=== PATIENT | male | born 1955 | race Caucasian/White ===

== ENCOUNTER 2021-02-06 17:52 | Inpatient (IN) | payer SELFPAY ==
[2021-02-06] MEDS ORDERED: Cefepime 2 GM VIAL ONE (18:17)
[2021-02-06 18:29] LABS: Hemoglobin 14.2 g/dL (14.0-18.0); Mean Corpuscular HGB CONC 30.5 g/dL (32.0-36.0); Mean Corpuscular Hemoglobin 26.9 pg (27.0-31.0); Mean Corpuscular Volume 88.1 fL (78.0-98.0); Mean Platelet Volume 7.7 fL (7.4-10.4); Platelet Count 402 thou/uL (130-400); RBC Distribution Width 16.4 % (11.5-14.5); Red Blood Cell (RBC) Count 5.27 mill/uL (4.70-6.10); White Blood Cell (WBC) Count 26.6 thou/uL (4.8-10.8)
[2021-02-06 18:40] LABS: Anisocytosis SLIGHT = 6-15 cells (100X) (0-5/hpf); Band 10 % (5-11); Hypochromia SLIGHT = 6-15 cells (100X) (0-5/hpf); Lymphocytes 2 % (21-51); MDiff Complete? YES; Neutrophil 88 % (42-75); Platelet Morphology Comment Appears Increased; Polychromasia SLIGHT = 2-3 cells (100X) (0-2/hpf)
[2021-02-06 18:55] LABS: ALT (SGPT) 19 U/L (8-55); AST (SGOT) 26 U/L (5-34); Albumin 3.2 g/dL (3.4-4.8); Alkaline Phosphatase 270 U/L (40-110); Anion Gap 22 mmol/L (10-20); BUN (Urea Nitrogen) 35 mg/dL (8.4-25.7); Bilirubin, Total 2.5 mg/dL (0.2-1.2); Calc. Creatinine Clearance 0 mL/min (70-130); Carbon Dioxide 21 mmol/L (23-31); Chloride 92 mmol/L (98-107); Globulin 4.2 g/dL (2.4-3.5); Glucose 274 mg/dL (80-115); Potassium 4.7 mmol/L (3.5-5.1); Protein, Total 7.4 g/dL (5.8-8.1); Sodium 130 mmol/L (136-145)
[2021-02-06] MEDS ORDERED: Diltiazem 125 MG/25 ML ONE (19:00)
[2021-02-06] MEDS ORDERED: Vancomycin 1 GM/200 ML BAG ONE (19:00)
[2021-02-06 19:02] LABS: CK (CPK) 66 U/L (30-200); Lipase 42 U/L (8-78)
[2021-02-06] MEDS ORDERED: Magnesium 2 GM/50 ML BAG (IN WATER) ONE (19:14)
[2021-02-06] MEDS ORDERED: metroNIDAZOLE 500 MG/100 ML BAG ONE (21:28)
[2021-02-06 22:14] LABS: Lactic Acid 2.4 mmol/L (0.5-2.2)
[2021-02-06] MEDS: Lactated Ringer's 1,000 ML IV SCH (23:47)
[2021-02-07 00:04] LABS: Bacteria/HPF 4+ HPF (None Seen); Bilirubin 1+ (Negative); Blood, Urine Trace (Negative); Clarity Extra Turbid (Clear); Glucose, Urine (Dipstick) Normal (Negative); Ketone, Urine Negative (Negative); Leukocyte 500 Leu/uL (Negative); Nitrite Negative (Negative); Protein, Urine (Dipstick) 200 mg/dL (Neg-Trace); Specific Gravity, Urine 1.022 (1.002-1.036); Squamous Epithelial 0-3 HPF (0-3); WBC/HPF Greater than 50 HPF (0-3); pH, Urine 5.5 (5.0-9.0)
[2021-02-07 01:28] LABS: SARS-CoV-2 NAA Rapid Test Not Detected (NotDetected)
[2021-02-07] MEDS ORDERED: Vancomycin 1 GM in Premix Bag 1 BAG IVPB SCH (03:00)
[2021-02-07] MEDS ORDERED: Dextrose 50% Abboject 50 ML SYRINGE SLOW IVP PRN (04:09)
[2021-02-07] MEDS ORDERED: Dextrose 5% in Water 1,000 ML IV PRN (04:09)
[2021-02-07] MEDS ORDERED: Ondansetron PF 4 MG/2 ML Vial IVP PRN (04:15)
[2021-02-07] MEDS: HYDROcodone/Acetaminophen 7.5/325 mg Tablet PO PRN (04:40)
[2021-02-07] MEDS: Sodium Chloride 0.9% 1,000 ML IV SCH ×2 (05:33→13:46)
[2021-02-07] MEDS: Cefepime 2 GM in Sodium Chloride 0.9% 100 ML IVPB SCH ×2 (05:34→17:54)
[2021-02-07] MEDS: Lactated Ringer's 1,000 ML IV SCH (05:34)
[2021-02-07 05:35] LABS: Band 5 % (5-11); Hemoglobin 13.6 g/dL (14.0-18.0); Lymphocytes 5 % (21-51); MDiff Complete? YES; Mean Corpuscular HGB CONC 30.9 g/dL (32.0-36.0); Mean Corpuscular Hemoglobin 27.1 pg (27.0-31.0); Mean Corpuscular Volume 87.7 fL (78.0-98.0); Mean Platelet Volume 7.4 fL (7.4-10.4); Monocytes 8 % (0-10); Neutrophil 82 % (42-75); Platelet Count 390 thou/uL (130-400); Platelet Morphology Comment Appears Adequate; RBC Distribution Width 16.6 % (11.5-14.5); RBC Morphology Normal; Red Blood Cell (RBC) Count 5.03 mill/uL (4.70-6.10); White Blood Cell (WBC) Count 24.8 thou/uL (4.8-10.8)
[2021-02-07 05:42] LABS: Hemoglobin A1c 8.5 % (4.0-6.0)
[2021-02-07] MEDS: HumaLOG 300 UNITS/3 ML VIAL SC PRN (05:56)
[2021-02-07] MEDS ORDERED: Meropenem 2 GM, Admixture Fee 1 EACH in Sodium Chloride 0.9% 100 ML IVPB SCH (06:00)
[2021-02-07 06:27] LABS: Anion Gap 18 mmol/L (10-20); BUN (Urea Nitrogen) 35 mg/dL (8.4-25.7); Calc. Creatinine Clearance 120 mL/min (70-130); Calcium 8.5 mg/dL (7.8-10.44); Carbon Dioxide 21 mmol/L (23-31); Chloride 96 mmol/L (98-107); Glucose 194 mg/dL (80-115); Sodium 131 mmol/L (136-145)
[2021-02-07] MEDS: metroNIDAZOLE 500 MG in Premix Bag 1 BAG IVPB SCH ×3 (06:42→21:18)
[2021-02-07 06:53] LABS: Cardiac Risk 3.7 (Less than 4.5)
[2021-02-07 06:59] LABS: T4 5.8 ug/dL (4.87-11.72); Thyroid Stimulating Hormone 1.1975 uIU/mL (0.35-4.94)
[2021-02-07 07:59] LABS: INR-International Normal Ratio 1.5; PTT 34.5 sec (22.9-36.1); Prothrombin Time 18.5 sec (12.0-14.7)
[2021-02-07 08:29] LABS: HBCM Index 0.07 S/CO (0-0.79); HBSAg Index 0.19 S/CO (0-0.99); Hep A IgM AB Non-Reactive (NonReactive); Hep A IgM S/CO 0.08 S/CO (0-0.79); Hep B Surf Ag Non-Reactive S/CO (NonReactive); Hep C IgG Ab Non-Reactive (NonReactive); Hep C Index 0.25 S/CO (0-0.79); Hepatitis B Core IgM Abs Non-Reactive (NonReactive)
[2021-02-07] MEDS ORDERED: Metoprolol Tartrate 25 MG TAB PO SCH (09:00)
[2021-02-07] MEDS ORDERED: metFORMIN 500 MG TAB PO SCH (09:00)
[2021-02-07] MEDS: glipiZIDE 5 MG TAB PO SCH ×2 (09:09→21:18)
[2021-02-07] MEDS: Aspirin Chewable 81 MG TAB PO SCH (09:10)
[2021-02-07] MEDS: Heparin 5,000 UNITS/ML VIAL SC SCH ×3 (09:10→21:18)
[2021-02-07] MEDS: Gabapentin 300 MG CAP PO SCH ×2 (09:10→21:18)
[2021-02-07] MEDS: Diltiazem 125 MG in Sodium Chloride 0.9% 100 ML IVPB SCH ×2 (09:49→19:01)
[2021-02-07] MEDS ORDERED: Digoxin 0.5 MG/2 ML AMP SLOW IVP SCH ×3 (14:00→15:30)
[2021-02-07] MEDS: Vancomycin 1.5 GRAM/300 ML BAG 1.5 GM in Premix Bag 1 BAG IVPB SCH (15:59)
[2021-02-07] MEDS ORDERED: Furosemide 20 MG/2 ML VIAL SLOW IVP SCH (16:00)
[2021-02-07] MEDS: Digoxin 0.5 MG/2 ML AMP SLOW IVP SCH (21:14)
[2021-02-07] MEDS: Simvastatin 10 MG TAB PO SCH (21:18)
[2021-02-08] MEDS: Digoxin 0.5 MG/2 ML AMP SLOW IVP SCH (03:13)
[2021-02-08] MEDS: Diltiazem 125 MG in Sodium Chloride 0.9% 100 ML IVPB SCH ×2 (03:15→21:24)
[2021-02-08] MEDS: Vancomycin 1.5 GRAM/300 ML BAG 1.5 GM in Premix Bag 1 BAG IVPB SCH ×2 (03:15→15:31)
[2021-02-08 04:48] LABS: Hemoglobin 13.8 g/dL (14.0-18.0); Mean Corpuscular HGB CONC 29.4 g/dL (32.0-36.0); Mean Corpuscular Hemoglobin 26.2 pg (27.0-31.0); Mean Corpuscular Volume 89.2 fL (78.0-98.0); Mean Platelet Volume 7.3 fL (7.4-10.4); Platelet Count 420 thou/uL (130-400); RBC Distribution Width 16.5 % (11.5-14.5); Red Blood Cell (RBC) Count 5.26 mill/uL (4.70-6.10); White Blood Cell (WBC) Count 22.5 thou/uL (4.8-10.8)
[2021-02-08] MEDS: HYDROcodone/Acetaminophen 7.5/325 mg Tablet PO PRN ×2 (04:54→21:13)
[2021-02-08] MEDS: metroNIDAZOLE 500 MG in Premix Bag 1 BAG IVPB SCH ×3 (04:57→21:24)
[2021-02-08 05:03] LABS: ALT (SGPT) 21 U/L (8-55); AST (SGOT) 29 U/L (5-34); Albumin 2.8 g/dL (3.4-4.8); Alkaline Phosphatase 217 U/L (40-110); Anion Gap 15 mmol/L (10-20); BUN (Urea Nitrogen) 36 mg/dL (8.4-25.7); Bilirubin, Total 1.6 mg/dL (0.2-1.2); Calc. Creatinine Clearance 136 mL/min (70-130); Calcium 8.2 mg/dL (7.8-10.44); Carbon Dioxide 24 mmol/L (23-31); Chloride 99 mmol/L (98-107); Globulin 3.7 g/dL (2.4-3.5); Glucose 147 mg/dL (80-115); Potassium 3.9 mmol/L (3.5-5.1); Protein, Total 6.5 g/dL (5.8-8.1); Sodium 134 mmol/L (136-145)
[2021-02-08 05:16] LABS: Lymphocytes 3 % (21-51); MDiff Complete? YES; Metamyelocyte 1 % (0-0); Monocytes 5 % (0-10); Neutrophil 91 % (42-75); Platelet Morphology Comment Appears Increased
[2021-02-08] MEDS: Cefepime 2 GM in Sodium Chloride 0.9% 100 ML IVPB SCH (06:09)
[2021-02-08] MEDS: Digoxin 0.25 MG TAB PO SCH (09:30)
[2021-02-08] MEDS: Aspirin Chewable 81 MG TAB PO SCH (09:30)
[2021-02-08] MEDS: glipiZIDE 5 MG TAB PO SCH ×2 (09:30→21:16)
[2021-02-08] MEDS: Heparin 5,000 UNITS/ML VIAL SC SCH ×3 (09:31→21:16)
[2021-02-08] MEDS: Gabapentin 300 MG CAP PO SCH ×2 (09:31→21:15)
[2021-02-08] MEDS: Lisinopril 5 MG TAB PO SCH (09:37)
[2021-02-08] MEDS: Furosemide 40 MG/4 ML VIAL SLOW IVP SCH (09:37)
[2021-02-08] MEDS: Cefepime 1 GM in Sodium Chloride 0.9% 100 ML IVPB SCH (18:09)
[2021-02-08] MEDS: Simvastatin 10 MG TAB PO SCH (21:16)
[2021-02-09 04:18] LABS: #Eosinphils 0.1 thou/uL (0.0-0.7); #Monocytes 1.5 thou/uL (0.11-0.59); #Neutrophils 18.3 thou/uL (1.40-6.50); %Basophils 0.1 % (0.0-1.0); %Eosinophils 0.5 % (0.0-10.0); %Lymphocytes 4.8 % (21.0-51.0); %Monocytes 6.9 % (0.0-10.0); %Neutrophils 87.7 % (42.0-75.0); Mean Corpuscular HGB CONC 30.4 g/dL (32.0-36.0); Mean Corpuscular Hemoglobin 27.4 pg (27.0-31.0); Mean Corpuscular Volume 90.1 fL (78.0-98.0); Platelet Count 441 thou/uL (130-400); RBC Distribution Width 16.4 % (11.5-14.5); Red Blood Cell (RBC) Count 5.11 mill/uL (4.70-6.10); White Blood Cell (WBC) Count 20.9 thou/uL (4.8-10.8)
[2021-02-09] MEDS: metroNIDAZOLE 500 MG in Premix Bag 1 BAG IVPB SCH ×3 (04:39→21:01)
[2021-02-09 04:40] LABS: ALT (SGPT) 19 U/L (8-55); AST (SGOT) 21 U/L (5-34); Albumin 2.9 g/dL (3.4-4.8); Alkaline Phosphatase 227 U/L (40-110); Anion Gap 13 mmol/L (10-20); BUN (Urea Nitrogen) 31 mg/dL (8.4-25.7); Bilirubin, Total 1.5 mg/dL (0.2-1.2); Calc. Creatinine Clearance 148 mL/min (70-130); Calcium 8.7 mg/dL (7.8-10.44); Carbon Dioxide 28 mmol/L (23-31); Chloride 98 mmol/L (98-107); Globulin 3.9 g/dL (2.4-3.5); Glucose 116 mg/dL (80-115); Protein, Total 6.8 g/dL (5.8-8.1); Sodium 135 mmol/L (136-145)
[2021-02-09] MEDS: Cefepime 1 GM in Sodium Chloride 0.9% 100 ML IVPB SCH ×2 (05:14→19:24)
[2021-02-09] MEDS: Vancomycin 1.5 GRAM/300 ML BAG 1.5 GM in Premix Bag 1 BAG IVPB SCH ×2 (06:03→17:37)
[2021-02-09] MEDS: Diltiazem 125 MG in Sodium Chloride 0.9% 100 ML IVPB SCH (06:48)
[2021-02-09] MEDS: Furosemide 40 MG/4 ML VIAL SLOW IVP SCH (08:19)
[2021-02-09] MEDS: Gabapentin 300 MG CAP PO SCH ×2 (08:20→20:41)
[2021-02-09] MEDS: glipiZIDE 5 MG TAB PO SCH ×2 (08:20→20:39)
[2021-02-09] MEDS: Aspirin Chewable 81 MG TAB PO SCH (08:20)
[2021-02-09] MEDS: Heparin 5,000 UNITS/ML VIAL SC SCH (08:20)
[2021-02-09] MEDS: Digoxin 0.25 MG TAB PO SCH (08:20)
[2021-02-09] MEDS: Lisinopril 5 MG TAB PO SCH (08:20)
[2021-02-09] MEDS: HYDROcodone/Acetaminophen 7.5/325 mg Tablet PO PRN ×2 (08:39→17:44)
[2021-02-09] MEDS ORDERED: Midazolam HCl 2 mg/2 ml Vial ONE (11:39)
[2021-02-09] MEDS ORDERED: Ketamine 50 MG/ML (10ML VIAL) ONE (11:40)
[2021-02-09] MEDS: Amiodarone 200 MG TAB PO SCH ×2 (15:38→20:42)
[2021-02-09] MEDS: Rivaroxaban 10 MG TAB PO SCH (17:45)
[2021-02-09] MEDS: HumaLOG 300 UNITS/3 ML VIAL SC PRN (18:36)
[2021-02-09] MEDS: Simvastatin 10 MG TAB PO SCH (20:41)
[2021-02-10] MEDS: Vancomycin 1.5 GRAM/300 ML BAG 1.5 GM in Premix Bag 1 BAG IVPB SCH ×2 (05:17→14:40)
[2021-02-10] MEDS: Cefepime 1 GM in Sodium Chloride 0.9% 100 ML IVPB SCH ×2 (05:18→17:10)
[2021-02-10] MEDS: metroNIDAZOLE 500 MG in Premix Bag 1 BAG IVPB SCH ×3 (05:19→22:10)
[2021-02-10 05:21] LABS: ALT (SGPT) 20 U/L (8-55); AST (SGOT) 25 U/L (5-34); Alkaline Phosphatase 236 U/L (40-110); Anion Gap 16 mmol/L (10-20); BUN (Urea Nitrogen) 31 mg/dL (8.4-25.7); Bilirubin, Total 1.7 mg/dL (0.2-1.2); Calc. Creatinine Clearance 145 mL/min (70-130); Calcium 8.4 mg/dL (7.8-10.44); Carbon Dioxide 26 mmol/L (23-31); Chloride 96 mmol/L (98-107); Globulin 4.1 g/dL (2.4-3.5); Glucose 145 mg/dL (80-115); Potassium 4.3 mmol/L (3.5-5.1); Protein, Total 7.1 g/dL (5.8-8.1); Sodium 134 mmol/L (136-145)
[2021-02-10 06:44] LABS: #Eosinphils 0.1 thou/uL (0.0-0.7); #Lymphocytes 0.8 thou/uL (1.20-3.40); #Monocytes 1.4 thou/uL (0.11-0.59); #Neutrophils 19.8 thou/uL (1.40-6.50); %Basophils 0.2 % (0.0-1.0); %Eosinophils 0.4 % (0.0-10.0); %Lymphocytes 3.7 % (21.0-51.0); %Monocytes 6.4 % (0.0-10.0); %Neutrophils 89.3 % (42.0-75.0); Anisocytosis SLIGHT = 6-15 cells (100X) (0-5/hpf); Hemoglobin 14.5 g/dL (14.0-18.0); MDiff Complete? YES; Mean Corpuscular HGB CONC 29.6 g/dL (32.0-36.0); Mean Corpuscular Volume 91.4 fL (78.0-98.0); Mean Platelet Volume 7.1 fL (7.4-10.4); Platelet Count 425 thou/uL (130-400); RBC Distribution Width 16.8 % (11.5-14.5); Red Blood Cell (RBC) Count 5.35 mill/uL (4.70-6.10); White Blood Cell (WBC) Count 22.2 thou/uL (4.8-10.8)
[2021-02-10] MEDS: Amiodarone 200 MG TAB PO SCH ×2 (08:06→22:04)
[2021-02-10] MEDS: glipiZIDE 5 MG TAB PO SCH ×2 (08:06→22:04)
[2021-02-10] MEDS: Lisinopril 5 MG TAB PO SCH (08:06)
[2021-02-10] MEDS: Aspirin Chewable 81 MG TAB PO SCH (08:06)
[2021-02-10] MEDS: Gabapentin 300 MG CAP PO SCH ×2 (08:07→22:04)
[2021-02-10] MEDS: Furosemide 40 MG/4 ML VIAL SLOW IVP SCH (08:10)
[2021-02-10] MEDS: HumaLOG 300 UNITS/3 ML VIAL SC PRN (11:03)
[2021-02-10] MEDS: HYDROcodone/Acetaminophen 7.5/325 mg Tablet PO PRN (14:39)
[2021-02-10] MEDS: Rivaroxaban 10 MG TAB PO SCH (17:14)
[2021-02-10] MEDS: Simvastatin 10 MG TAB PO SCH (22:04)
[2021-02-11] MEDS ORDERED: Metoprolol Tartrate 50 MG TAB PO SCH (02:30)
[2021-02-11] MEDS: HYDROcodone/Acetaminophen 7.5/325 mg Tablet PO PRN ×2 (03:56→15:44)
[2021-02-11] MEDS: Vancomycin 1.5 GRAM/300 ML BAG 1.5 GM in Premix Bag 1 BAG IVPB SCH ×2 (03:59→15:31)
[2021-02-11 04:29] LABS: #Eosinphils 0.1 thou/uL (0.0-0.7); #Lymphocytes 0.9 thou/uL (1.20-3.40); #Monocytes 1.3 thou/uL (0.11-0.59); #Neutrophils 14.3 thou/uL (1.40-6.50); %Basophils 0.2 % (0.0-1.0); %Eosinophils 0.7 % (0.0-10.0); %Lymphocytes 5.6 % (21.0-51.0); %Neutrophils 85.6 % (42.0-75.0); Hemoglobin 13.4 g/dL (14.0-18.0); Mean Corpuscular HGB CONC 29.5 g/dL (32.0-36.0); Mean Corpuscular Hemoglobin 26.5 pg (27.0-31.0); Mean Corpuscular Volume 89.7 fL (78.0-98.0); Platelet Count 396 thou/uL (130-400); RBC Distribution Width 16.5 % (11.5-14.5); Red Blood Cell (RBC) Count 5.05 mill/uL (4.70-6.10); White Blood Cell (WBC) Count 16.7 thou/uL (4.8-10.8)
[2021-02-11 04:42] LABS: Anion Gap 13 mmol/L (10-20); BUN (Urea Nitrogen) 31 mg/dL (8.4-25.7); Calc. Creatinine Clearance 160 mL/min (70-130); Calcium 8.2 mg/dL (7.8-10.44); Carbon Dioxide 27 mmol/L (23-31); Chloride 97 mmol/L (98-107); Glucose 116 mg/dL (80-115); Magnesium 1.9 mg/dL (1.6-2.6); Phosphorus 2.4 mg/dL (2.3-4.7); Sodium 133 mmol/L (136-145)
[2021-02-11] MEDS: metroNIDAZOLE 500 MG in Premix Bag 1 BAG IVPB SCH ×3 (05:55→21:00)
[2021-02-11] MEDS: Cefepime 1 GM in Sodium Chloride 0.9% 100 ML IVPB SCH ×2 (05:55→17:09)
[2021-02-11] MEDS: Furosemide 40 MG/4 ML VIAL SLOW IVP SCH (08:00)
[2021-02-11] MEDS: Gabapentin 300 MG CAP PO SCH ×2 (08:01→20:58)
[2021-02-11] MEDS: Lisinopril 5 MG TAB PO SCH (08:01)
[2021-02-11] MEDS: Aspirin Chewable 81 MG TAB PO SCH (08:02)
[2021-02-11] MEDS: Amiodarone 200 MG TAB PO SCH ×2 (08:02→20:59)
[2021-02-11] MEDS: glipiZIDE 5 MG TAB PO SCH ×2 (08:03→20:58)
[2021-02-11] MEDS ORDERED: Polyethylene Glycol 3350 17 GM Packet PO PRN (10:20)
[2021-02-11] MEDS ORDERED: Magnesium 2 GM/50 ML 2 GM in Premix Bag 1 BAG IVPB SCH (10:30)
[2021-02-11] MEDS: HumaLOG 300 UNITS/3 ML VIAL SC PRN (11:25)
[2021-02-11 15:31] LABS: Vancomycin, Trough 23.6 ug/mL
[2021-02-11] MEDS: Rivaroxaban 10 MG TAB PO SCH (17:09)
[2021-02-11] MEDS: Simvastatin 10 MG TAB PO SCH (20:58)
[2021-02-12 03:05] LABS: #Eosinphils 0.2 thou/uL (0.0-0.7); #Monocytes 1.3 thou/uL (0.11-0.59); #Neutrophils 13.9 thou/uL (1.40-6.50); %Basophils 0.2 % (0.0-1.0); %Eosinophils 1.1 % (0.0-10.0); %Monocytes 8.1 % (0.0-10.0); %Neutrophils 84.6 % (42.0-75.0); Hemoglobin 14.1 g/dL (14.0-18.0); Mean Corpuscular HGB CONC 30.7 g/dL (32.0-36.0); Mean Corpuscular Hemoglobin 27.5 pg (27.0-31.0); Mean Corpuscular Volume 89.5 fL (78.0-98.0); Mean Platelet Volume 6.9 fL (7.4-10.4); Platelet Count 388 thou/uL (130-400); RBC Distribution Width 16.5 % (11.5-14.5); Red Blood Cell (RBC) Count 5.12 mill/uL (4.70-6.10); White Blood Cell (WBC) Count 16.5 thou/uL (4.8-10.8)
[2021-02-12 03:36] LABS: Vancomycin, Trough 36.6 ug/mL
[2021-02-12] MEDS: metroNIDAZOLE 500 MG in Premix Bag 1 BAG IVPB SCH (06:15)
[2021-02-12] MEDS: Cefepime 1 GM in Sodium Chloride 0.9% 100 ML IVPB SCH (06:16)
[2021-02-12 06:42] LABS: Anion Gap 13 mmol/L (10-20); Carbon Dioxide 23 mmol/L (23-31); Chloride 103 mmol/L (98-107); Potassium 4.9 mmol/L (3.5-5.1); Sodium 134 mmol/L (136-145)
[2021-02-12 06:43] LABS: BUN (Urea Nitrogen) 31 mg/dL (8.4-25.7); Calc. Creatinine Clearance 165 mL/min (70-130); Calcium 8.4 mg/dL (7.8-10.44); Glucose 138 mg/dL (80-115)
[2021-02-12] MEDS: Furosemide 40 MG/4 ML VIAL SLOW IVP SCH (07:57)
[2021-02-12] MEDS: glipiZIDE 5 MG TAB PO SCH ×2 (07:59→21:54)
[2021-02-12] MEDS: Aspirin Chewable 81 MG TAB PO SCH (07:59)
[2021-02-12] MEDS: Amiodarone 200 MG TAB PO SCH ×3 (07:59→21:55)
[2021-02-12] MEDS: Gabapentin 300 MG CAP PO SCH ×2 (07:59→21:55)
[2021-02-12] MEDS: Lisinopril 5 MG TAB PO SCH (07:59)
[2021-02-12] MEDS ORDERED: Metoprolol Tartrate 5 MG/5 ML VIAL IVP PRN (13:38)
[2021-02-12] MEDS: HYDROcodone/Acetaminophen 7.5/325 mg Tablet PO PRN (15:14)
[2021-02-12 15:24] LABS: Vancomycin, Random 21.8 ug/mL (See Comment)
[2021-02-12] MEDS ORDERED: Vancomycin 1.5 GRAM/300 ML BAG 1.5 GM in Premix Bag 1 BAG IVPB SCH (16:00)
[2021-02-12] MEDS: CEFAZOLIN 2 GM in Premix Bag 1 BAG IVPB SCH ×2 (17:06→23:33)
[2021-02-12] MEDS: Rivaroxaban 10 MG TAB PO SCH (17:07)
[2021-02-12] MEDS: Simvastatin 10 MG TAB PO SCH (21:55)
[2021-02-13] MEDS: HYDROcodone/Acetaminophen 7.5/325 mg Tablet PO PRN ×2 (04:08→19:55)
[2021-02-13 04:45] LABS: #Eosinphils 0.2 thou/uL (0.0-0.7); #Lymphocytes 1.1 thou/uL (1.20-3.40); #Monocytes 1.1 thou/uL (0.11-0.59); #Neutrophils 11.3 thou/uL (1.40-6.50); %Basophils 0.2 % (0.0-1.0); %Eosinophils 1.7 % (0.0-10.0); %Lymphocytes 7.6 % (21.0-51.0); %Neutrophils 82.5 % (42.0-75.0); Hemoglobin 13.7 g/dL (14.0-18.0); Mean Corpuscular HGB CONC 31.2 g/dL (32.0-36.0); Mean Corpuscular Hemoglobin 28.1 pg (27.0-31.0); Mean Corpuscular Volume 89.9 fL (78.0-98.0); Mean Platelet Volume 7.2 fL (7.4-10.4); Platelet Count 388 thou/uL (130-400); RBC Distribution Width 16.6 % (11.5-14.5); Red Blood Cell (RBC) Count 4.88 mill/uL (4.70-6.10); White Blood Cell (WBC) Count 13.7 thou/uL (4.8-10.8)
[2021-02-13 05:14] LABS: Anion Gap 12 mmol/L (10-20); BUN (Urea Nitrogen) 29 mg/dL (8.4-25.7); Calc. Creatinine Clearance 171 mL/min (70-130); Calcium 8.8 mg/dL (7.8-10.44); Carbon Dioxide 29 mmol/L (23-31); Chloride 98 mmol/L (98-107); Glucose 113 mg/dL (80-115); Sodium 135 mmol/L (136-145)
[2021-02-13] MEDS: glipiZIDE 5 MG TAB PO SCH ×2 (08:47→19:56)
[2021-02-13] MEDS: Aspirin Chewable 81 MG TAB PO SCH (08:47)
[2021-02-13] MEDS: Gabapentin 300 MG CAP PO SCH ×2 (08:48→19:56)
[2021-02-13] MEDS: Amiodarone 200 MG TAB PO SCH ×3 (08:48→19:56)
[2021-02-13] MEDS: Lisinopril 5 MG TAB PO SCH (08:48)
[2021-02-13] MEDS: CEFAZOLIN 2 GM in Premix Bag 1 BAG IVPB SCH ×3 (08:50→23:57)
[2021-02-13] MEDS: Furosemide 40 MG/4 ML VIAL SLOW IVP SCH (09:07)
[2021-02-13] MEDS: Rivaroxaban 10 MG TAB PO SCH (18:00)
[2021-02-13] MEDS ORDERED: Metolazone 5 MG TAB PO SCH (18:15)
[2021-02-13] MEDS: Simvastatin 10 MG TAB PO SCH (19:55)
[2021-02-14 04:51] LABS: #Basophils 0.1 thou/uL (0.0-0.2); #Eosinphils 0.2 thou/uL (0.0-0.7); #Monocytes 0.9 thou/uL (0.11-0.59); #Neutrophils 8.5 thou/uL (1.40-6.50); %Basophils 0.6 % (0.0-1.0); %Eosinophils 1.9 % (0.0-10.0); %Lymphocytes 9.5 % (21.0-51.0); %Monocytes 8.7 % (0.0-10.0); %Neutrophils 79.3 % (42.0-75.0); Hemoglobin 13.7 g/dL (14.0-18.0); Mean Corpuscular HGB CONC 30.6 g/dL (32.0-36.0); Mean Corpuscular Hemoglobin 27.4 pg (27.0-31.0); Mean Corpuscular Volume 89.6 fL (78.0-98.0); Platelet Count 338 thou/uL (130-400); RBC Distribution Width 16.9 % (11.5-14.5); White Blood Cell (WBC) Count 10.7 thou/uL (4.8-10.8)
[2021-02-14 05:16] LABS: Anion Gap 13 mmol/L (10-20); BUN (Urea Nitrogen) 28 mg/dL (8.4-25.7); Calc. Creatinine Clearance 142 mL/min (70-130); Carbon Dioxide 30 mmol/L (23-31); Chloride 98 mmol/L (98-107); Glucose 231 mg/dL (80-115); Magnesium 1.9 mg/dL (1.6-2.6); Potassium 3.8 mmol/L (3.5-5.1); Sodium 137 mmol/L (136-145)
[2021-02-14] MEDS ORDERED: Magnesium Sulfate 2 GM in Sodium Chloride 0.9% 100 ML IVPB SCH (07:15)
[2021-02-14] MEDS ORDERED: Magnesium 2 GM/50 ML 2 GM in Premix Bag 1 BAG IVPB SCH (07:30)
[2021-02-14] MEDS: CEFAZOLIN 2 GM in Premix Bag 1 BAG IVPB SCH ×2 (08:49→15:20)
[2021-02-14] MEDS: Furosemide 40 MG/4 ML VIAL SLOW IVP SCH (08:50)
[2021-02-14] MEDS: Lisinopril 5 MG TAB PO SCH (08:50)
[2021-02-14] MEDS: glipiZIDE 5 MG TAB PO SCH ×2 (08:50→20:58)
[2021-02-14] MEDS: Gabapentin 300 MG CAP PO SCH ×2 (08:51→20:57)
[2021-02-14] MEDS: Aspirin Chewable 81 MG TAB PO SCH (08:51)
[2021-02-14] MEDS: Amiodarone 200 MG TAB PO SCH ×3 (08:51→20:58)
[2021-02-14] MEDS ORDERED: Milrinone Lactate/D5W 20 MG in Premix Bag 1 BAG IVPB SCH (13:30)
[2021-02-14] MEDS: Rivaroxaban 10 MG TAB PO SCH (17:45)
[2021-02-14] MEDS: Simvastatin 10 MG TAB PO SCH (20:59)
[2021-02-14] MEDS: Milrinone Lactate/D5W 20 MG in Premix Bag 1 BAG IVPB SCH (22:29)
[2021-02-15] MEDS: CEFAZOLIN 2 GM in Premix Bag 1 BAG IVPB SCH ×4 (00:06→23:40)
[2021-02-15 04:56] LABS: #Eosinphils 0.2 thou/uL (0.0-0.7); #Lymphocytes 0.9 thou/uL (1.20-3.40); #Monocytes 0.9 thou/uL (0.11-0.59); #Neutrophils 9.2 thou/uL (1.40-6.50); %Basophils 0.1 % (0.0-1.0); %Eosinophils 1.9 % (0.0-10.0); %Lymphocytes 8.2 % (21.0-51.0); %Monocytes 8.1 % (0.0-10.0); %Neutrophils 81.7 % (42.0-75.0); Hemoglobin 13.6 g/dL (14.0-18.0); Mean Corpuscular HGB CONC 31.4 g/dL (32.0-36.0); Mean Corpuscular Hemoglobin 28.1 pg (27.0-31.0); Mean Corpuscular Volume 89.5 fL (78.0-98.0); Mean Platelet Volume 6.9 fL (7.4-10.4); Platelet Count 289 thou/uL (130-400); RBC Distribution Width 16.6 % (11.5-14.5); Red Blood Cell (RBC) Count 4.83 mill/uL (4.70-6.10); White Blood Cell (WBC) Count 11.2 thou/uL (4.8-10.8)
[2021-02-15 05:21] LABS: Anion Gap 12 mmol/L (10-20); BUN (Urea Nitrogen) 25 mg/dL (8.4-25.7); Calc. Creatinine Clearance 137 mL/min (70-130); Carbon Dioxide 33 mmol/L (23-31); Chloride 97 mmol/L (98-107); Glucose 192 mg/dL (80-115); Magnesium 1.9 mg/dL (1.6-2.6); Potassium 3.5 mmol/L (3.5-5.1); Sodium 138 mmol/L (136-145)
[2021-02-15] MEDS: Metolazone 5 MG TAB PO SCH (06:25)
[2021-02-15] MEDS: HumaLOG 300 UNITS/3 ML VIAL SC PRN ×2 (06:27→12:49)
[2021-02-15] MEDS: Furosemide 40 MG/4 ML VIAL SLOW IVP SCH (08:28)
[2021-02-15] MEDS: Amiodarone 200 MG TAB PO SCH ×3 (08:29→20:26)
[2021-02-15] MEDS ORDERED: Potassium Chloride 20 MEQ TAB PO SCH ×2 (08:30→17:00)
[2021-02-15] MEDS: Gabapentin 300 MG CAP PO SCH ×2 (08:30→20:26)
[2021-02-15] MEDS: Lisinopril 5 MG TAB PO SCH (08:30)
[2021-02-15] MEDS: glipiZIDE 5 MG TAB PO SCH ×2 (08:30→20:27)
[2021-02-15] MEDS: Aspirin Chewable 81 MG TAB PO SCH (08:30)
[2021-02-15] MEDS: Milrinone Lactate/D5W 20 MG in Premix Bag 1 BAG IVPB SCH ×3 (10:53→22:50)
[2021-02-15] MEDS: Rivaroxaban 10 MG TAB PO SCH (17:21)
[2021-02-15] MEDS: Simvastatin 10 MG TAB PO SCH (20:26)
[2021-02-16 04:45] LABS: #Eosinphils 0.3 thou/uL (0.0-0.7); #Lymphocytes 1.1 thou/uL (1.20-3.40); #Neutrophils 8.9 thou/uL (1.40-6.50); %Basophils 0.2 % (0.0-1.0); %Eosinophils 2.5 % (0.0-10.0); %Lymphocytes 9.6 % (21.0-51.0); %Monocytes 9.2 % (0.0-10.0); %Neutrophils 78.6 % (42.0-75.0); Hemoglobin 13.8 g/dL (14.0-18.0); Mean Corpuscular HGB CONC 31.3 g/dL (32.0-36.0); Mean Corpuscular Hemoglobin 27.9 pg (27.0-31.0); Mean Corpuscular Volume 89.2 fL (78.0-98.0); Platelet Count 299 thou/uL (130-400); RBC Distribution Width 16.6 % (11.5-14.5); Red Blood Cell (RBC) Count 4.94 mill/uL (4.70-6.10); White Blood Cell (WBC) Count 11.3 thou/uL (4.8-10.8)
[2021-02-16 05:07] LABS: Anion Gap 13 mmol/L (10-20); BUN (Urea Nitrogen) 21 mg/dL (8.4-25.7); Calc. Creatinine Clearance 148 mL/min (70-130); Calcium 8.8 mg/dL (7.8-10.44); Carbon Dioxide 31 mmol/L (23-31); Chloride 96 mmol/L (98-107); Glucose 140 mg/dL (80-115); Potassium 4.3 mmol/L (3.5-5.1); Sodium 136 mmol/L (136-145)
[2021-02-16] MEDS: Milrinone Lactate/D5W 20 MG in Premix Bag 1 BAG IVPB SCH ×2 (05:13→12:51)
[2021-02-16] MEDS: Metolazone 5 MG TAB PO SCH (05:13)
[2021-02-16] MEDS: Gabapentin 300 MG CAP PO SCH ×2 (08:53→20:18)
[2021-02-16] MEDS: Furosemide 40 MG/4 ML VIAL SLOW IVP SCH (08:54)
[2021-02-16] MEDS: Aspirin Chewable 81 MG TAB PO SCH (08:54)
[2021-02-16] MEDS: Amiodarone 200 MG TAB PO SCH ×3 (08:54→20:19)
[2021-02-16] MEDS: glipiZIDE 5 MG TAB PO SCH ×2 (08:54→20:19)
[2021-02-16] MEDS: CEFAZOLIN 2 GM in Premix Bag 1 BAG IVPB SCH ×2 (08:54→16:02)
[2021-02-16] MEDS: Lisinopril 5 MG TAB PO SCH (08:55)
[2021-02-16] MEDS: HumaLOG 300 UNITS/3 ML VIAL SC PRN ×2 (11:15→18:09)
[2021-02-16] MEDS: Rivaroxaban 10 MG TAB PO SCH (16:56)
[2021-02-16] MEDS: HYDROcodone/Acetaminophen 7.5/325 mg Tablet PO PRN (18:10)
[2021-02-16] MEDS: Simvastatin 10 MG TAB PO SCH (20:18)
[2021-02-17] MEDS: CEFAZOLIN 2 GM in Premix Bag 1 BAG IVPB SCH ×3 (01:14→15:23)
[2021-02-17 05:17] LABS: #Eosinphils 0.2 thou/uL (0.0-0.7); #Lymphocytes 0.9 thou/uL (1.20-3.40); #Monocytes 0.9 thou/uL (0.11-0.59); #Neutrophils 7.8 thou/uL (1.40-6.50); %Basophils 0.2 % (0.0-1.0); %Eosinophils 2.4 % (0.0-10.0); %Monocytes 9.2 % (0.0-10.0); %Neutrophils 79.2 % (42.0-75.0); Hemoglobin 12.9 g/dL (14.0-18.0); Mean Corpuscular HGB CONC 29.2 g/dL (32.0-36.0); Mean Corpuscular Hemoglobin 25.9 pg (27.0-31.0); Mean Corpuscular Volume 88.6 fL (78.0-98.0); Mean Platelet Volume 7.3 fL (7.4-10.4); Platelet Count 292 thou/uL (130-400); Red Blood Cell (RBC) Count 4.99 mill/uL (4.70-6.10); White Blood Cell (WBC) Count 9.9 thou/uL (4.8-10.8)
[2021-02-17] MEDS: Metolazone 5 MG TAB PO SCH (05:35)
[2021-02-17 05:37] LABS: Anion Gap 12 mmol/L (10-20); BUN (Urea Nitrogen) 18 mg/dL (8.4-25.7); Calc. Creatinine Clearance 156 mL/min (70-130); Calcium 8.7 mg/dL (7.8-10.44); Carbon Dioxide 32 mmol/L (23-31); Chloride 94 mmol/L (98-107); Glucose 158 mg/dL (80-115); Magnesium 1.7 mg/dL (1.6-2.6); Potassium 3.5 mmol/L (3.5-5.1); Sodium 134 mmol/L (136-145)
[2021-02-17] MEDS: glipiZIDE 5 MG TAB PO SCH ×2 (09:14→20:25)
[2021-02-17] MEDS: Gabapentin 300 MG CAP PO SCH ×2 (09:14→20:24)
[2021-02-17] MEDS: Amiodarone 200 MG TAB PO SCH ×3 (09:14→20:24)
[2021-02-17] MEDS: Furosemide 40 MG/4 ML VIAL SLOW IVP SCH (09:14)
[2021-02-17] MEDS: Aspirin Chewable 81 MG TAB PO SCH (09:14)
[2021-02-17] MEDS: Lisinopril 5 MG TAB PO SCH (09:26)
[2021-02-17] MEDS: HumaLOG 300 UNITS/3 ML VIAL SC PRN ×3 (12:25→20:30)
[2021-02-17] MEDS: HYDROcodone/Acetaminophen 7.5/325 mg Tablet PO PRN (14:52)
[2021-02-17] MEDS: Rivaroxaban 10 MG TAB PO SCH (18:00)
[2021-02-17] MEDS: Milrinone Lactate/D5W 20 MG in Premix Bag 1 BAG IVPB SCH (19:30)
[2021-02-17] MEDS: Simvastatin 10 MG TAB PO SCH (20:24)
[2021-02-18] MEDS: Milrinone Lactate/D5W 20 MG in Premix Bag 1 BAG IVPB SCH ×6 (00:01→22:04)
[2021-02-18] MEDS: CEFAZOLIN 2 GM in Premix Bag 1 BAG IVPB SCH ×3 (00:02→17:39)
[2021-02-18] MEDS: Acetaminophen 325 MG TAB PO PRN ×2 (04:17→19:51)
[2021-02-18] MEDS: Metolazone 5 MG TAB PO SCH (05:51)
[2021-02-18] MEDS: Lisinopril 5 MG TAB PO SCH (08:33)
[2021-02-18] MEDS: Amiodarone 200 MG TAB PO SCH ×3 (08:33→20:57)
[2021-02-18] MEDS: Gabapentin 300 MG CAP PO SCH ×2 (08:34→20:57)
[2021-02-18] MEDS: Aspirin Chewable 81 MG TAB PO SCH (08:34)
[2021-02-18] MEDS: glipiZIDE 5 MG TAB PO SCH ×2 (08:34→20:57)
[2021-02-18] MEDS: Furosemide 40 MG/4 ML VIAL SLOW IVP SCH (08:35)
[2021-02-18] MEDS ORDERED: Furosemide 40 MG/4 ML VIAL SLOW IVP SCH ×2 (08:53→14:00)
[2021-02-18] MEDS: HumaLOG 300 UNITS/3 ML VIAL SC PRN (12:52)
[2021-02-18] MEDS ORDERED: Furosemide 100 MG/10 ML VIAL SLOW IVP SCH (14:00)
[2021-02-18] MEDS ORDERED: Amiodarone 200 MG TAB PO SCH (17:00)
[2021-02-18] MEDS: Rivaroxaban 10 MG TAB PO SCH (17:45)
[2021-02-18] MEDS: Simvastatin 10 MG TAB PO SCH (20:56)
[2021-02-19] MEDS: CEFAZOLIN 2 GM in Premix Bag 1 BAG IVPB SCH ×4 (00:10→23:33)
[2021-02-19] MEDS: Acetaminophen 325 MG TAB PO PRN (00:10)
[2021-02-19] MEDS: Milrinone Lactate/D5W 20 MG in Premix Bag 1 BAG IVPB SCH ×5 (03:11→19:59)
[2021-02-19] MEDS: Metolazone 5 MG TAB PO SCH (05:01)
[2021-02-19] MEDS ORDERED: Furosemide 40 MG/4 ML VIAL SLOW IVP SCH ×2 (06:00→12:30)
[2021-02-19] MEDS: Lisinopril 5 MG TAB PO SCH (09:38)
[2021-02-19] MEDS: Aspirin Chewable 81 MG TAB PO SCH (09:40)
[2021-02-19] MEDS: Amiodarone 200 MG TAB PO SCH ×3 (09:40→20:00)
[2021-02-19] MEDS: Gabapentin 300 MG CAP PO SCH ×2 (09:40→20:00)
[2021-02-19] MEDS: glipiZIDE 5 MG TAB PO SCH ×2 (09:40→20:00)
[2021-02-19] MEDS: HumaLOG 300 UNITS/3 ML VIAL SC PRN ×2 (11:17→22:19)
[2021-02-19] MEDS: Furosemide 40 MG/4 ML VIAL SLOW IVP SCH (15:25)
[2021-02-19] MEDS: Rivaroxaban 10 MG TAB PO SCH (18:18)
[2021-02-19] MEDS: Simvastatin 10 MG TAB PO SCH (20:00)
[2021-02-19] MEDS: AcetaZOLAMIDE 250 MG TAB PO SCH (20:00)
[2021-02-20] MEDS: Milrinone Lactate/D5W 20 MG in Premix Bag 1 BAG IVPB SCH ×5 (00:51→23:30)
[2021-02-20 05:29] LABS: Anion Gap 12 mmol/L (10-20); BUN (Urea Nitrogen) 28 mg/dL (8.4-25.7); Calc. Creatinine Clearance 124 mL/min (70-130); Calcium 9.1 mg/dL (7.8-10.44); Carbon Dioxide 35 mmol/L (23-31); Chloride 88 mmol/L (98-107); Glucose 99 mg/dL (80-115); Sodium 132 mmol/L (136-145)
[2021-02-20 05:32] LABS: Potassium 2.8 mmol/L (3.5-5.1)
[2021-02-20] MEDS: Metolazone 5 MG TAB PO SCH (05:42)
[2021-02-20] MEDS ORDERED: Potassium Chloride 20 MEQ TAB PO SCH (06:15)
[2021-02-20] MEDS ORDERED: Potassium Chloride 40 MEQ in Sodium Chloride 0.9% 250 ML 250 ML IVPB SCH (06:30)
[2021-02-20] MEDS: AcetaZOLAMIDE 250 MG TAB PO SCH ×2 (08:32→22:02)
[2021-02-20] MEDS: Gabapentin 300 MG CAP PO SCH ×2 (08:33→22:02)
[2021-02-20] MEDS: glipiZIDE 5 MG TAB PO SCH ×2 (08:33→22:03)
[2021-02-20] MEDS: Aspirin Chewable 81 MG TAB PO SCH (08:33)
[2021-02-20] MEDS: Amiodarone 200 MG TAB PO SCH ×3 (08:33→21:51)
[2021-02-20] MEDS: Lisinopril 5 MG TAB PO SCH (08:33)
[2021-02-20] MEDS: Furosemide 40 MG/4 ML VIAL SLOW IVP SCH ×3 (08:34→15:59)
[2021-02-20] MEDS: CEFAZOLIN 2 GM in Premix Bag 1 BAG IVPB SCH ×3 (08:34→23:31)
[2021-02-20] MEDS: Acetaminophen 325 MG TAB PO PRN (10:36)
[2021-02-20 12:08] LABS: Potassium 3.1 mmol/L (3.5-5.1)
[2021-02-20] MEDS ORDERED: PROPOFOL 200 MG/20 ML VIAL ONE (15:01)
[2021-02-20] MEDS ORDERED: PHENYLEPHRINE-NS 100 MCG/ML 10 ML SYRINGE ONE (15:01)
[2021-02-20] MEDS: Rivaroxaban 10 MG TAB PO SCH (18:38)
[2021-02-20] MEDS: Simvastatin 10 MG TAB PO SCH (22:02)
[2021-02-20] MEDS: HumaLOG 300 UNITS/3 ML VIAL SC PRN (22:03)
[2021-02-21] MEDS: Milrinone Lactate/D5W 20 MG in Premix Bag 1 BAG IVPB SCH ×2 (04:05→09:03)
[2021-02-21] MEDS: Acetaminophen 325 MG TAB PO PRN (04:15)
[2021-02-21 04:22] LABS: Anion Gap 13 mmol/L (10-20); BUN (Urea Nitrogen) 35 mg/dL (8.4-25.7); Calc. Creatinine Clearance 92 mL/min (70-130); Calcium 8.6 mg/dL (7.8-10.44); Carbon Dioxide 34 mmol/L (23-31); Chloride 90 mmol/L (98-107); Glucose 180 mg/dL (80-115); Sodium 134 mmol/L (136-145)
[2021-02-21] MEDS: Metolazone 5 MG TAB PO SCH (05:26)
[2021-02-21] MEDS: HumaLOG 300 UNITS/3 ML VIAL SC PRN (06:30)
[2021-02-21] MEDS: CEFAZOLIN 2 GM in Premix Bag 1 BAG IVPB SCH ×2 (09:02→15:50)
[2021-02-21] MEDS: AcetaZOLAMIDE 250 MG TAB PO SCH ×2 (09:03→21:14)
[2021-02-21] MEDS: Gabapentin 300 MG CAP PO SCH ×2 (09:03→21:14)
[2021-02-21] MEDS: Lisinopril 5 MG TAB PO SCH (09:03)
[2021-02-21] MEDS: Amiodarone 200 MG TAB PO SCH ×3 (09:04→21:14)
[2021-02-21] MEDS: Aspirin Chewable 81 MG TAB PO SCH (09:04)
[2021-02-21] MEDS: glipiZIDE 5 MG TAB PO SCH ×2 (09:04→21:14)
[2021-02-21] MEDS ORDERED: Sodium Chloride 0.9% 250 ML IV SCH (17:00)
[2021-02-21] MEDS: Rivaroxaban 10 MG TAB PO SCH (17:39)
[2021-02-21] MEDS: Simvastatin 10 MG TAB PO SCH (21:14)
[2021-02-22] MEDS: Milrinone Lactate/D5W 20 MG in Premix Bag 1 BAG IVPB SCH ×3 (00:19→17:57)
[2021-02-22] MEDS: CEFAZOLIN 2 GM in Premix Bag 1 BAG IVPB SCH ×4 (00:20→23:42)
[2021-02-22 04:50] LABS: Anion Gap 12 mmol/L (10-20); BUN (Urea Nitrogen) 35 mg/dL (8.4-25.7); Calc. Creatinine Clearance 90 mL/min (70-130); Calcium 8.6 mg/dL (7.8-10.44); Carbon Dioxide 31 mmol/L (23-31); Chloride 91 mmol/L (98-107); Glucose 93 mg/dL (80-115); Sodium 131 mmol/L (136-145)
[2021-02-22 04:51] LABS: Potassium 2.8 mmol/L (3.5-5.1)
[2021-02-22] MEDS: Potassium Chloride 20 MEQ in Premix Bag 1 BAG IVPB SCH ×2 (05:31→09:59)
[2021-02-22] MEDS: Acetaminophen 325 MG TAB PO PRN (05:44)
[2021-02-22] MEDS: glipiZIDE 5 MG TAB PO SCH ×2 (09:58→20:17)
[2021-02-22] MEDS: Gabapentin 300 MG CAP PO SCH ×2 (09:58→20:17)
[2021-02-22] MEDS: Aspirin Chewable 81 MG TAB PO SCH (09:59)
[2021-02-22] MEDS: Amiodarone 200 MG TAB PO SCH ×3 (09:59→20:18)
[2021-02-22] MEDS: Lisinopril 5 MG TAB PO SCH (09:59)
[2021-02-22] MEDS ORDERED: Potassium Chloride 20 MEQ TAB PO SCH (11:15)
[2021-02-22] MEDS: Rivaroxaban 10 MG TAB PO SCH (17:57)
[2021-02-22] MEDS: Simvastatin 10 MG TAB PO SCH (20:17)
[2021-02-22] MEDS ORDERED: Electrolyte Replacement Protocol 1 EACH FS SCH (22:45)
[2021-02-23 04:38] LABS: #Eosinphils 0.2 thou/uL (0.0-0.7); #Lymphocytes 0.9 thou/uL (1.20-3.40); #Monocytes 1.2 thou/uL (0.11-0.59); #Neutrophils 7.8 thou/uL (1.40-6.50); %Basophils 0.1 % (0.0-1.0); %Eosinophils 1.9 % (0.0-10.0); %Lymphocytes 8.9 % (21.0-51.0); %Monocytes 11.7 % (0.0-10.0); %Neutrophils 77.4 % (42.0-75.0); Hemoglobin 11.4 g/dL (14.0-18.0); Mean Corpuscular HGB CONC 33.2 g/dL (32.0-36.0); Mean Corpuscular Hemoglobin 29.2 pg (27.0-31.0); Mean Corpuscular Volume 87.8 fL (78.0-98.0); Platelet Count 270 thou/uL (130-400); RBC Distribution Width 17.4 % (11.5-14.5); White Blood Cell (WBC) Count 10.1 thou/uL (4.8-10.8)
[2021-02-23 05:05] LABS: Anion Gap 12 mmol/L (10-20); BUN (Urea Nitrogen) 37 mg/dL (8.4-25.7); Calc. Creatinine Clearance 94 mL/min (70-130); Calcium 8.5 mg/dL (7.8-10.44); Carbon Dioxide 31 mmol/L (23-31); Chloride 92 mmol/L (98-107); Glucose 81 mg/dL (80-115); Magnesium 2.1 mg/dL (1.6-2.6); Sodium 132 mmol/L (136-145)
[2021-02-23 05:20] LABS: Potassium 2.9 mmol/L (3.5-5.1)
[2021-02-23] MEDS: Milrinone Lactate/D5W 20 MG in Premix Bag 1 BAG IVPB SCH ×2 (06:26→19:33)
[2021-02-23] MEDS: Potassium Chloride 20 MEQ TAB PO SCH ×2 (09:19→14:30)
[2021-02-23] MEDS: Aspirin Chewable 81 MG TAB PO SCH (09:19)
[2021-02-23] MEDS: Gabapentin 300 MG CAP PO SCH ×2 (09:19→21:00)
[2021-02-23] MEDS: Amiodarone 200 MG TAB PO SCH ×3 (09:19→21:01)
[2021-02-23] MEDS: CEFAZOLIN 2 GM in Premix Bag 1 BAG IVPB SCH ×3 (09:19→23:53)
[2021-02-23] MEDS: glipiZIDE 5 MG TAB PO SCH ×2 (09:20→20:59)
[2021-02-23] MEDS: Lisinopril 5 MG TAB PO SCH (09:20)
[2021-02-23] MEDS: Rivaroxaban 10 MG TAB PO SCH (18:04)
[2021-02-23] MEDS: Simvastatin 10 MG TAB PO SCH (20:59)
[2021-02-24] MEDS: Milrinone Lactate/D5W 20 MG in Premix Bag 1 BAG IVPB SCH ×4 (01:33→20:36)
[2021-02-24 04:36] LABS: #Eosinphils 0.2 thou/uL (0.0-0.7); #Lymphocytes 0.8 thou/uL (1.20-3.40); #Monocytes 1.2 thou/uL (0.11-0.59); #Neutrophils 7.5 thou/uL (1.40-6.50); %Eosinophils 1.9 % (0.0-10.0); %Lymphocytes 8.5 % (21.0-51.0); %Monocytes 12.4 % (0.0-10.0); %Neutrophils 77.2 % (42.0-75.0); Hemoglobin 11.2 g/dL (14.0-18.0); Mean Corpuscular Volume 87.7 fL (78.0-98.0); Mean Platelet Volume 7.1 fL (7.4-10.4); Platelet Count 261 thou/uL (130-400); RBC Distribution Width 17.5 % (11.5-14.5); Red Blood Cell (RBC) Count 4.01 mill/uL (4.70-6.10); White Blood Cell (WBC) Count 9.7 thou/uL (4.8-10.8)
[2021-02-24 05:02] LABS: Anion Gap 12 mmol/L (10-20); BUN (Urea Nitrogen) 38 mg/dL (8.4-25.7); Calc. Creatinine Clearance 111 mL/min (70-130); Calcium 8.7 mg/dL (7.8-10.44); Carbon Dioxide 28 mmol/L (23-31); Chloride 95 mmol/L (98-107); Glucose 114 mg/dL (80-115); Magnesium 2.2 mg/dL (1.6-2.6); Potassium 3.2 mmol/L (3.5-5.1); Sodium 132 mmol/L (136-145)
[2021-02-24] MEDS ORDERED: Potassium Chloride 20 MEQ TAB PO SCH (06:45)
[2021-02-24] MEDS: Lisinopril 5 MG TAB PO SCH (09:30)
[2021-02-24] MEDS: Gabapentin 300 MG CAP PO SCH ×2 (09:30→20:37)
[2021-02-24] MEDS: Amiodarone 200 MG TAB PO SCH ×3 (09:30→20:37)
[2021-02-24] MEDS: glipiZIDE 5 MG TAB PO SCH ×2 (09:30→20:37)
[2021-02-24] MEDS: CEFAZOLIN 2 GM in Premix Bag 1 BAG IVPB SCH ×3 (09:30→23:52)
[2021-02-24] MEDS: Aspirin Chewable 81 MG TAB PO SCH (09:30)
[2021-02-24] MEDS ORDERED: Furosemide 40 MG/4 ML VIAL SLOW IVP SCH (15:45)
[2021-02-24] MEDS: Rivaroxaban 10 MG TAB PO SCH (17:20)
[2021-02-24] MEDS: Simvastatin 10 MG TAB PO SCH (20:37)
[2021-02-25] MEDS: Milrinone Lactate/D5W 20 MG in Premix Bag 1 BAG IVPB SCH ×3 (02:58→20:36)
[2021-02-25 05:04] LABS: #Eosinphils 0.2 thou/uL (0.0-0.7); #Lymphocytes 0.9 thou/uL (1.20-3.40); #Monocytes 1.2 thou/uL (0.11-0.59); #Neutrophils 6.8 thou/uL (1.40-6.50); %Eosinophils 1.7 % (0.0-10.0); %Monocytes 12.7 % (0.0-10.0); %Neutrophils 75.6 % (42.0-75.0); Hemoglobin 10.5 g/dL (14.0-18.0); Mean Corpuscular HGB CONC 32.1 g/dL (32.0-36.0); Mean Corpuscular Hemoglobin 28.2 pg (27.0-31.0); Platelet Count 273 thou/uL (130-400); RBC Distribution Width 17.6 % (11.5-14.5); Red Blood Cell (RBC) Count 3.71 mill/uL (4.70-6.10); White Blood Cell (WBC) Count 9.1 thou/uL (4.8-10.8)
[2021-02-25] MEDS: Furosemide 40 MG/4 ML VIAL SLOW IVP SCH ×2 (05:27→17:29)
[2021-02-25] MEDS: HumaLOG 300 UNITS/3 ML VIAL SC PRN (05:30)
[2021-02-25 05:48] LABS: Anion Gap 12 mmol/L (10-20); BUN (Urea Nitrogen) 38 mg/dL (8.4-25.7); Calc. Creatinine Clearance 108 mL/min (70-130); Calcium 8.4 mg/dL (7.8-10.44); Carbon Dioxide 27 mmol/L (23-31); Chloride 97 mmol/L (98-107); Glucose 156 mg/dL (80-115); Potassium 3.1 mmol/L (3.5-5.1); Sodium 133 mmol/L (136-145)
[2021-02-25] MEDS ORDERED: Potassium Chloride 20 MEQ TAB PO SCH (07:00)
[2021-02-25] MEDS: Amiodarone 200 MG TAB PO SCH ×3 (09:36→20:12)
[2021-02-25] MEDS: Lisinopril 5 MG TAB PO SCH (09:36)
[2021-02-25] MEDS: CEFAZOLIN 2 GM in Premix Bag 1 BAG IVPB SCH ×3 (09:36→23:59)
[2021-02-25] MEDS: Aspirin Chewable 81 MG TAB PO SCH (09:36)
[2021-02-25] MEDS: Gabapentin 300 MG CAP PO SCH ×2 (09:36→20:12)
[2021-02-25] MEDS: glipiZIDE 5 MG TAB PO SCH ×2 (09:36→20:12)
[2021-02-25] MEDS: Oxymetazoline HCl 0.05% (30 ML BOT) NS PRN (14:47)
[2021-02-25 14:58] LABS: Hemoglobin 10.3 g/dL (14.0-18.0); Platelet Count 303 thou/uL (130-400)
[2021-02-25] MEDS ORDERED: Tranexamic Acid 1,000 MG in Sodium Chloride 0.9% 250 ML 250 ML IVPB SCH (16:00)
[2021-02-25] MEDS ORDERED: Lidocaine 4% Topical Sol 50 ML BOT TOP SCH (17:00)
[2021-02-25] MEDS: Simvastatin 10 MG TAB PO SCH (20:12)
[2021-02-25] MEDS: Sodium Chloride 0.65% Nasal 44 ML BOT EA NARE SCH (20:13)
[2021-02-25] MEDS: Sodium Chloride Nasal 15 GM TUBE EA NARE SCH (20:13)
[2021-02-25] MEDS ORDERED: Enoxaparin Sodium 100 MG/ML SYRINGE SC SCH (21:00)
[2021-02-26] MEDS: Acetaminophen 325 MG TAB PO PRN ×3 (00:03→09:08)
[2021-02-26] MEDS: Milrinone Lactate/D5W 20 MG in Premix Bag 1 BAG IVPB SCH ×4 (03:12→20:11)
[2021-02-26 04:29] LABS: #Eosinphils 0.1 thou/uL (0.0-0.7); #Monocytes 1.2 thou/uL (0.11-0.59); #Neutrophils 6.6 thou/uL (1.40-6.50); %Basophils 0.3 % (0.0-1.0); %Eosinophils 1.5 % (0.0-10.0); %Lymphocytes 11.2 % (21.0-51.0); %Monocytes 13.2 % (0.0-10.0); %Neutrophils 73.7 % (42.0-75.0); Hemoglobin 10.5 g/dL (14.0-18.0); INR-International Normal Ratio 1.4; Mean Corpuscular HGB CONC 32.2 g/dL (32.0-36.0); Mean Corpuscular Hemoglobin 28.5 pg (27.0-31.0); Mean Corpuscular Volume 88.4 fL (78.0-98.0); Platelet Count 324 thou/uL (130-400); Prothrombin Time 17.2 sec (12.0-14.7); RBC Distribution Width 17.5 % (11.5-14.5)
[2021-02-26 04:39] LABS: Anion Gap 14 mmol/L (10-20); BUN (Urea Nitrogen) 49 mg/dL (8.4-25.7); Calc. Creatinine Clearance 110 mL/min (70-130); Calcium 8.9 mg/dL (7.8-10.44); Carbon Dioxide 27 mmol/L (23-31); Chloride 97 mmol/L (98-107); Glucose 131 mg/dL (80-115); Potassium 3.5 mmol/L (3.5-5.1); Sodium 134 mmol/L (136-145)
[2021-02-26] MEDS: Furosemide 40 MG/4 ML VIAL SLOW IVP SCH ×2 (05:20→14:59)
[2021-02-26] MEDS ORDERED: Potassium Chloride 20 MEQ TAB PO SCH (06:45)
[2021-02-26] MEDS: CEFAZOLIN 2 GM in Premix Bag 1 BAG IVPB SCH ×3 (08:24→23:33)
[2021-02-26] MEDS: Gabapentin 300 MG CAP PO SCH ×2 (08:24→20:11)
[2021-02-26] MEDS: glipiZIDE 5 MG TAB PO SCH ×2 (08:24→20:12)
[2021-02-26] MEDS: Lisinopril 5 MG TAB PO SCH (08:24)
[2021-02-26] MEDS: Amiodarone 200 MG TAB PO SCH ×3 (08:24→20:11)
[2021-02-26] MEDS: Aspirin Chewable 81 MG TAB PO SCH (08:25)
[2021-02-26] MEDS: Oxymetazoline HCl 0.05% (30 ML BOT) NS PRN (08:25)
[2021-02-26] MEDS: Sodium Chloride 0.65% Nasal 44 ML BOT EA NARE SCH ×3 (09:09→20:13)
[2021-02-26] MEDS: Sodium Chloride Nasal 15 GM TUBE EA NARE SCH ×3 (09:09→20:55)
[2021-02-26] MEDS: Simvastatin 10 MG TAB PO SCH (20:11)
[2021-02-27] MEDS: Milrinone Lactate/D5W 20 MG in Premix Bag 1 BAG IVPB SCH ×3 (01:00→21:26)
[2021-02-27] MEDS: Acetaminophen 325 MG TAB PO PRN ×2 (05:13→21:31)
[2021-02-27] MEDS: Furosemide 40 MG/4 ML VIAL SLOW IVP SCH ×2 (05:14→15:32)
[2021-02-27 08:11] LABS: #Basophils 0.1 thou/uL (0.0-0.2); #Eosinphils 0.2 thou/uL (0.0-0.7); #Lymphocytes 1.1 thou/uL (1.20-3.40); #Monocytes 1.2 thou/uL (0.11-0.59); %Basophils 0.7 % (0.0-1.0); %Eosinophils 2.4 % (0.0-10.0); %Lymphocytes 12.5 % (21.0-51.0); %Monocytes 14.1 % (0.0-10.0); %Neutrophils 70.2 % (42.0-75.0); Hemoglobin 9.5 g/dL (14.0-18.0); Mean Corpuscular HGB CONC 32.5 g/dL (32.0-36.0); Mean Corpuscular Hemoglobin 28.4 pg (27.0-31.0); Mean Corpuscular Volume 87.5 fL (78.0-98.0); Mean Platelet Volume 6.8 fL (7.4-10.4); Platelet Count 268 thou/uL (130-400); RBC Distribution Width 17.5 % (11.5-14.5); Red Blood Cell (RBC) Count 3.34 mill/uL (4.70-6.10); White Blood Cell (WBC) Count 8.5 thou/uL (4.8-10.8)
[2021-02-27 08:24] LABS: Anion Gap 11 mmol/L (10-20); BUN (Urea Nitrogen) 35 mg/dL (8.4-25.7); Calc. Creatinine Clearance 124 mL/min (70-130); Calcium 8.4 mg/dL (7.8-10.44); Carbon Dioxide 30 mmol/L (23-31); Chloride 98 mmol/L (98-107); Glucose 80 mg/dL (80-115); Potassium 3.3 mmol/L (3.5-5.1); Sodium 136 mmol/L (136-145)
[2021-02-27] MEDS ORDERED: Potassium Chloride 20 MEQ TAB PO SCH (08:45)
[2021-02-27] MEDS: glipiZIDE 5 MG TAB PO SCH ×2 (08:57→21:26)
[2021-02-27] MEDS: Sodium Chloride 0.65% Nasal 44 ML BOT EA NARE SCH ×3 (08:57→21:28)
[2021-02-27] MEDS: Amiodarone 200 MG TAB PO SCH ×2 (08:57→21:27)
[2021-02-27] MEDS: Aspirin Chewable 81 MG TAB PO SCH (08:57)
[2021-02-27] MEDS: Gabapentin 300 MG CAP PO SCH ×2 (08:57→21:27)
[2021-02-27] MEDS: Sodium Chloride Nasal 15 GM TUBE EA NARE SCH ×3 (08:57→21:28)
[2021-02-27] MEDS: CEFAZOLIN 2 GM in Premix Bag 1 BAG IVPB SCH ×3 (08:57→23:50)
[2021-02-27] MEDS ORDERED: Communication Order-Pharmacy FS SCH (17:45)
[2021-02-27] MEDS: Simvastatin 10 MG TAB PO SCH (21:27)
[2021-02-28 04:28] LABS: #Eosinphils 0.3 thou/uL (0.0-0.7); #Monocytes 1.2 thou/uL (0.11-0.59); %Basophils 0.5 % (0.0-1.0); %Eosinophils 3.2 % (0.0-10.0); %Lymphocytes 11.8 % (21.0-51.0); %Monocytes 14.5 % (0.0-10.0); %Neutrophils 70.1 % (42.0-75.0); Hemoglobin 9.8 g/dL (14.0-18.0); Mean Corpuscular HGB CONC 31.2 g/dL (32.0-36.0); Mean Corpuscular Hemoglobin 27.4 pg (27.0-31.0); Mean Corpuscular Volume 87.8 fL (78.0-98.0); Mean Platelet Volume 6.7 fL (7.4-10.4); Platelet Count 300 thou/uL (130-400); RBC Distribution Width 17.4 % (11.5-14.5); Red Blood Cell (RBC) Count 3.59 mill/uL (4.70-6.10); White Blood Cell (WBC) Count 8.6 thou/uL (4.8-10.8)
[2021-02-28 04:48] LABS: Anion Gap 11 mmol/L (10-20); BUN (Urea Nitrogen) 27 mg/dL (8.4-25.7); Calc. Creatinine Clearance 139 mL/min (70-130); Carbon Dioxide 30 mmol/L (23-31); Chloride 99 mmol/L (98-107); Glucose 68 mg/dL (80-115); Potassium 3.5 mmol/L (3.5-5.1); Sodium 136 mmol/L (136-145)
[2021-02-28] MEDS: Furosemide 40 MG/4 ML VIAL SLOW IVP SCH (06:05)
[2021-02-28] MEDS: CEFAZOLIN 2 GM in Premix Bag 1 BAG IVPB SCH ×3 (06:06→22:59)
[2021-02-28] MEDS: Milrinone Lactate/D5W 20 MG in Premix Bag 1 BAG IVPB SCH ×2 (06:06→21:34)
[2021-02-28] MEDS: Aspirin Chewable 81 MG TAB PO SCH (06:06)
[2021-02-28] MEDS: Gabapentin 300 MG CAP PO SCH ×2 (06:06→21:37)
[2021-02-28] MEDS: Amiodarone 200 MG TAB PO SCH ×2 (06:07→21:36)
[2021-02-28] MEDS: Sodium Chloride Nasal 15 GM TUBE EA NARE SCH ×3 (06:08→21:39)
[2021-02-28] MEDS: Sodium Chloride 0.65% Nasal 44 ML BOT EA NARE SCH ×3 (06:08→21:38)
[2021-02-28] MEDS ORDERED: Heparin 10,000 UNITS/ 10 ML VIAL ONE (06:47)
[2021-02-28] MEDS ORDERED: Verapamil 5 MG/2 ML VIAL ONE (06:47)
[2021-02-28] MEDS ORDERED: Nitroglycerin 100MG/250ML BOT 250 ML ONE (06:48)
[2021-02-28] MEDS ORDERED: Lidocaine 1% (PF) 30 ML VIAL ONE (06:48)
[2021-02-28] MEDS ORDERED: Potassium Chloride 20 MEQ TAB PO SCH (08:15)
[2021-02-28] MEDS ORDERED: Sodium Chloride 0.9% 200 ML IV PRN (08:36)
[2021-02-28] MEDS ORDERED: Acetaminophen/Codeine 30-300mg Tablet PO PRN (08:36)
[2021-02-28] MEDS ORDERED: Nitroglycerin 0.4 MG TAB (25 Tab Bottle) SL PRN (08:36)
[2021-02-28] MEDS ORDERED: Iopamidol 370 76% 100 ML VIAL ONE (08:50)
[2021-02-28] MEDS ORDERED: Clopidogrel Bisulfate 75 MG TAB PO SCH (20:00)
[2021-02-28] MEDS: Simvastatin 10 MG TAB PO SCH (21:37)
[2021-03-01] MEDS: Acetaminophen 325 MG TAB PO PRN (00:15)
[2021-03-01 05:10] LABS: #Eosinphils 0.2 thou/uL (0.0-0.7); #Lymphocytes 0.8 thou/uL (1.20-3.40); #Monocytes 0.9 thou/uL (0.11-0.59); #Neutrophils 4.9 thou/uL (1.40-6.50); %Basophils 0.3 % (0.0-1.0); %Eosinophils 3.6 % (0.0-10.0); %Lymphocytes 11.8 % (21.0-51.0); %Monocytes 13.4 % (0.0-10.0); Hemoglobin 10.2 g/dL (14.0-18.0); Mean Corpuscular HGB CONC 32.7 g/dL (32.0-36.0); Mean Corpuscular Volume 88.7 fL (78.0-98.0); Mean Platelet Volume 6.8 fL (7.4-10.4); Platelet Count 311 thou/uL (130-400); RBC Distribution Width 17.6 % (11.5-14.5); Red Blood Cell (RBC) Count 3.51 mill/uL (4.70-6.10); White Blood Cell (WBC) Count 6.9 thou/uL (4.8-10.8)
[2021-03-01 05:24] LABS: Anion Gap 11 mmol/L (10-20); BUN (Urea Nitrogen) 18 mg/dL (8.4-25.7); Calc. Creatinine Clearance 145 mL/min (70-130); Carbon Dioxide 28 mmol/L (23-31); Chloride 100 mmol/L (98-107); Glucose 76 mg/dL (80-115); Potassium 3.7 mmol/L (3.5-5.1); Sodium 135 mmol/L (136-145)
[2021-03-01] MEDS: Milrinone Lactate/D5W 20 MG in Premix Bag 1 BAG IVPB SCH ×2 (07:28→15:22)
[2021-03-01] MEDS: Gabapentin 300 MG CAP PO SCH ×2 (08:59→20:35)
[2021-03-01] MEDS: CEFAZOLIN 2 GM in Premix Bag 1 BAG IVPB SCH ×3 (08:59→23:19)
[2021-03-01] MEDS: Aspirin Chewable 81 MG TAB PO SCH (09:00)
[2021-03-01] MEDS: Clopidogrel Bisulfate 75 MG TAB PO SCH (09:00)
[2021-03-01] MEDS: Amiodarone 200 MG TAB PO SCH ×2 (09:00→20:35)
[2021-03-01] MEDS: Sodium Chloride 0.65% Nasal 44 ML BOT EA NARE SCH ×3 (09:02→20:37)
[2021-03-01] MEDS: Sodium Chloride Nasal 15 GM TUBE EA NARE SCH ×3 (09:03→20:40)
[2021-03-01] MEDS ORDERED: Furosemide 40 MG/4 ML VIAL SLOW IVP SCH (09:30)
[2021-03-01] MEDS ORDERED: Dextrose 5% in Water 1,000 ML IV PRN (12:17)
[2021-03-01] MEDS ORDERED: Dextrose 50% Abboject 50 ML SYRINGE SLOW IVP PRN (12:17)
[2021-03-01] MEDS: HumaLOG 300 UNITS/3 ML VIAL SC PRN ×2 (12:34→17:35)
[2021-03-01] MEDS: Furosemide 40 MG/4 ML VIAL SLOW IVP SCH (13:46)
[2021-03-01 16:02] VITALS: BMI 43.4
[2021-03-01] MEDS: Simvastatin 10 MG TAB PO SCH (20:35)
[2021-03-01] MEDS: Oxymetazoline HCl 0.05% (30 ML BOT) NS PRN (20:37)
[2021-03-02] MEDS: Milrinone Lactate/D5W 20 MG in Premix Bag 1 BAG IVPB SCH ×2 (00:12→08:59)
[2021-03-02 04:29] LABS: #Eosinphils 0.2 thou/uL (0.0-0.7); #Lymphocytes 0.8 thou/uL (1.20-3.40); #Monocytes 0.8 thou/uL (0.11-0.59); #Neutrophils 6.3 thou/uL (1.40-6.50); %Basophils 0.2 % (0.0-1.0); %Eosinophils 2.3 % (0.0-10.0); %Lymphocytes 10.1 % (21.0-51.0); %Neutrophils 77.6 % (42.0-75.0); Hemoglobin 9.7 g/dL (14.0-18.0); Mean Corpuscular HGB CONC 31.3 g/dL (32.0-36.0); Mean Corpuscular Hemoglobin 27.5 pg (27.0-31.0); Mean Corpuscular Volume 88.1 fL (78.0-98.0); Mean Platelet Volume 6.7 fL (7.4-10.4); Platelet Count 339 thou/uL (130-400); RBC Distribution Width 17.5 % (11.5-14.5); White Blood Cell (WBC) Count 8.1 thou/uL (4.8-10.8)
[2021-03-02 04:41] LABS: Anion Gap 11 mmol/L (10-20); BUN (Urea Nitrogen) 22 mg/dL (8.4-25.7); Calc. Creatinine Clearance 139 mL/min (70-130); Calcium 8.8 mg/dL (7.8-10.44); Carbon Dioxide 31 mmol/L (23-31); Chloride 97 mmol/L (98-107); Glucose 129 mg/dL (80-115); Potassium 3.8 mmol/L (3.5-5.1); Sodium 135 mmol/L (136-145)
[2021-03-02] MEDS: Furosemide 40 MG/4 ML VIAL SLOW IVP SCH (05:42)
[2021-03-02] MEDS: Acetaminophen 325 MG TAB PO PRN (06:19)
[2021-03-02] MEDS: Gabapentin 300 MG CAP PO SCH ×2 (08:42→20:51)
[2021-03-02] MEDS: Clopidogrel Bisulfate 75 MG TAB PO SCH (08:42)
[2021-03-02] MEDS: CEFAZOLIN 2 GM in Premix Bag 1 BAG IVPB SCH ×3 (08:43→23:43)
[2021-03-02] MEDS: Aspirin Chewable 81 MG TAB PO SCH (08:43)
[2021-03-02] MEDS: Amiodarone 200 MG TAB PO SCH ×2 (08:43→20:51)
[2021-03-02] MEDS: Sodium Chloride Nasal 15 GM TUBE EA NARE SCH ×3 (08:45→20:49)
[2021-03-02] MEDS: Sodium Chloride 0.65% Nasal 44 ML BOT EA NARE SCH ×3 (08:45→20:47)
[2021-03-02] MEDS: Acetaminophen/Codeine 30-300mg Tablet PO PRN (12:28)
[2021-03-02] MEDS: Furosemide 20 MG TAB PO SCH (15:47)
[2021-03-02] MEDS: Oxymetazoline HCl 0.05% (30 ML BOT) NS PRN (20:47)
[2021-03-02] MEDS: Simvastatin 10 MG TAB PO SCH (20:51)
[2021-03-03 04:30] LABS: #Eosinphils 0.2 thou/uL (0.0-0.7); #Lymphocytes 0.9 thou/uL (1.20-3.40); #Monocytes 0.9 thou/uL (0.11-0.59); #Neutrophils 6.1 thou/uL (1.40-6.50); %Basophils 0.4 % (0.0-1.0); %Eosinophils 2.4 % (0.0-10.0); %Lymphocytes 10.7 % (21.0-51.0); %Monocytes 10.8 % (0.0-10.0); %Neutrophils 75.7 % (42.0-75.0); Hemoglobin 10.1 g/dL (14.0-18.0); Mean Corpuscular HGB CONC 31.8 g/dL (32.0-36.0); Mean Corpuscular Hemoglobin 27.9 pg (27.0-31.0); Mean Corpuscular Volume 87.9 fL (78.0-98.0); Mean Platelet Volume 6.5 fL (7.4-10.4); Platelet Count 330 thou/uL (130-400); RBC Distribution Width 17.6 % (11.5-14.5)
[2021-03-03 04:49] LABS: Anion Gap 14 mmol/L (10-20); BUN (Urea Nitrogen) 20 mg/dL (8.4-25.7); Calc. Creatinine Clearance 135 mL/min (70-130); Calcium 8.9 mg/dL (7.8-10.44); Carbon Dioxide 27 mmol/L (23-31); Chloride 98 mmol/L (98-107); Glucose 144 mg/dL (80-115); Potassium 3.6 mmol/L (3.5-5.1); Sodium 135 mmol/L (136-145)
[2021-03-03] MEDS: CEFAZOLIN 2 GM in Premix Bag 1 BAG IVPB SCH ×2 (07:46→15:31)
[2021-03-03] MEDS: Gabapentin 300 MG CAP PO SCH ×2 (07:47→20:16)
[2021-03-03] MEDS: Furosemide 20 MG TAB PO SCH ×2 (07:47→15:32)
[2021-03-03] MEDS: Aspirin Chewable 81 MG TAB PO SCH (07:47)
[2021-03-03] MEDS: Clopidogrel Bisulfate 75 MG TAB PO SCH (07:47)
[2021-03-03] MEDS: Amiodarone 200 MG TAB PO SCH ×2 (07:47→20:16)
[2021-03-03] MEDS: Sodium Chloride 0.65% Nasal 44 ML BOT EA NARE SCH ×3 (07:48→20:18)
[2021-03-03] MEDS: Sodium Chloride Nasal 15 GM TUBE EA NARE SCH ×3 (07:48→20:19)
[2021-03-03] MEDS: HumaLOG 300 UNITS/3 ML VIAL SC PRN ×2 (15:34→17:01)
[2021-03-03] MEDS: Simvastatin 10 MG TAB PO SCH (20:16)
[2021-03-04] MEDS: CEFAZOLIN 2 GM in Premix Bag 1 BAG IVPB SCH ×4 (01:51→23:54)
[2021-03-04] MEDS: Gabapentin 300 MG CAP PO SCH ×2 (09:53→21:07)
[2021-03-04] MEDS: Aspirin Chewable 81 MG TAB PO SCH (09:53)
[2021-03-04] MEDS: Furosemide 20 MG TAB PO SCH ×2 (09:53→14:46)
[2021-03-04] MEDS: Amiodarone 200 MG TAB PO SCH ×2 (09:53→21:07)
[2021-03-04] MEDS: Clopidogrel Bisulfate 75 MG TAB PO SCH (09:53)
[2021-03-04] MEDS: Sodium Chloride 0.65% Nasal 44 ML BOT EA NARE SCH ×3 (09:54→21:00)
[2021-03-04] MEDS: Sodium Chloride Nasal 15 GM TUBE EA NARE SCH ×3 (09:55→23:42)
[2021-03-04] MEDS ORDERED: Metolazone 5 MG TAB PO SCH (10:45)
[2021-03-04] MEDS: HumaLOG 300 UNITS/3 ML VIAL SC PRN (17:11)
[2021-03-04] MEDS: Simvastatin 10 MG TAB PO SCH (21:07)
[2021-03-05] MEDS: Acetaminophen/Codeine 30-300mg Tablet PO PRN
[2021-03-05 05:03] LABS: #Eosinphils 0.2 thou/uL (0.0-0.7); #Lymphocytes 1.1 thou/uL (1.20-3.40); #Monocytes 0.9 thou/uL (0.11-0.59); #Neutrophils 6.3 thou/uL (1.40-6.50); %Basophils 0.4 % (0.0-1.0); %Eosinophils 2.9 % (0.0-10.0); %Lymphocytes 12.4 % (21.0-51.0); %Monocytes 10.2 % (0.0-10.0); %Neutrophils 74.2 % (42.0-75.0); Hemoglobin 10.7 g/dL (14.0-18.0); Mean Corpuscular HGB CONC 32.3 g/dL (32.0-36.0); Mean Corpuscular Hemoglobin 28.5 pg (27.0-31.0); Mean Platelet Volume 6.9 fL (7.4-10.4); Platelet Count 331 thou/uL (130-400); RBC Distribution Width 17.5 % (11.5-14.5); Red Blood Cell (RBC) Count 3.75 mill/uL (4.70-6.10); White Blood Cell (WBC) Count 8.5 thou/uL (4.8-10.8)
[2021-03-05 05:24] LABS: Anion Gap 16 mmol/L (10-20); BUN (Urea Nitrogen) 18 mg/dL (8.4-25.7); Calc. Creatinine Clearance 122 mL/min (70-130); Calcium 9.1 mg/dL (7.8-10.44); Carbon Dioxide 27 mmol/L (23-31); Chloride 97 mmol/L (98-107); Glucose 132 mg/dL (80-115); Potassium 3.5 mmol/L (3.5-5.1); Sodium 136 mmol/L (136-145)
[2021-03-05] MEDS ORDERED: Potassium Chloride 20 MEQ TAB PO SCH (06:30)
[2021-03-05] MEDS: CEFAZOLIN 2 GM in Premix Bag 1 BAG IVPB SCH (08:43)
[2021-03-05] MEDS: Amiodarone 200 MG TAB PO SCH ×2 (08:44→21:43)
[2021-03-05] MEDS: Aspirin Chewable 81 MG TAB PO SCH (08:44)
[2021-03-05] MEDS: Clopidogrel Bisulfate 75 MG TAB PO SCH (08:44)
[2021-03-05] MEDS: Furosemide 20 MG TAB PO SCH ×2 (08:45→14:42)
[2021-03-05] MEDS: Gabapentin 300 MG CAP PO SCH ×2 (08:45→21:43)
[2021-03-05] MEDS: Sodium Chloride 0.65% Nasal 44 ML BOT EA NARE SCH ×3 (08:47→21:43)
[2021-03-05] MEDS: Sodium Chloride Nasal 15 GM TUBE EA NARE SCH ×3 (08:47→21:51)
[2021-03-05] MEDS: HumaLOG 300 UNITS/3 ML VIAL SC PRN ×2 (17:17→21:42)
[2021-03-05] MEDS: Simvastatin 10 MG TAB PO SCH (21:43)
[2021-03-06 04:57] LABS: #Eosinphils 0.2 thou/uL (0.0-0.7); #Monocytes 0.9 thou/uL (0.11-0.59); #Neutrophils 6.6 thou/uL (1.40-6.50); %Basophils 0.1 % (0.0-1.0); %Eosinophils 2.7 % (0.0-10.0); %Lymphocytes 11.3 % (21.0-51.0); %Monocytes 9.8 % (0.0-10.0); %Neutrophils 76.2 % (42.0-75.0); Hemoglobin 10.5 g/dL (14.0-18.0); Mean Corpuscular HGB CONC 32.9 g/dL (32.0-36.0); Mean Corpuscular Hemoglobin 28.9 pg (27.0-31.0); Mean Corpuscular Volume 87.7 fL (78.0-98.0); Platelet Count 295 thou/uL (130-400); RBC Distribution Width 17.5 % (11.5-14.5); Red Blood Cell (RBC) Count 3.64 mill/uL (4.70-6.10); White Blood Cell (WBC) Count 8.7 thou/uL (4.8-10.8)
[2021-03-06 05:18] LABS: Anion Gap 16 mmol/L (10-20); BUN (Urea Nitrogen) 22 mg/dL (8.4-25.7); Calc. Creatinine Clearance 128 mL/min (70-130); Calcium 8.9 mg/dL (7.8-10.44); Carbon Dioxide 28 mmol/L (23-31); Chloride 96 mmol/L (98-107); Glucose 142 mg/dL (80-115); Potassium 3.6 mmol/L (3.5-5.1); Sodium 136 mmol/L (136-145)
[2021-03-06] MEDS: Furosemide 20 MG TAB PO SCH ×2 (08:53→15:17)
[2021-03-06] MEDS: Amiodarone 200 MG TAB PO SCH ×2 (08:54→20:47)
[2021-03-06] MEDS: Clopidogrel Bisulfate 75 MG TAB PO SCH (08:54)
[2021-03-06] MEDS: Aspirin Chewable 81 MG TAB PO SCH (08:54)
[2021-03-06] MEDS: Gabapentin 300 MG CAP PO SCH ×2 (08:54→20:47)
[2021-03-06] MEDS: Sodium Chloride 0.65% Nasal 44 ML BOT EA NARE SCH ×3 (08:57→20:48)
[2021-03-06] MEDS: Oxymetazoline HCl 0.05% (30 ML BOT) NS PRN ×2 (08:57→20:48)
[2021-03-06] MEDS: Sodium Chloride Nasal 15 GM TUBE EA NARE SCH ×3 (08:58→20:49)
[2021-03-06] MEDS: Cephalexin 250 MG CAP PO SCH ×2 (17:47→23:43)
[2021-03-06] MEDS: HumaLOG 300 UNITS/3 ML VIAL SC PRN (17:48)
[2021-03-06] MEDS: Simvastatin 10 MG TAB PO SCH (20:48)
[2021-03-06] MEDS ORDERED: HumaLOG 300 UNITS/3 ML VIAL SC PRN (22:10)
[2021-03-06] MEDS ORDERED: Dextrose 50% Abboject 50 ML SYRINGE SLOW IVP PRN (22:10)
[2021-03-06] MEDS ORDERED: Dextrose 5% in Water 1,000 ML IV PRN (22:10)
[2021-03-07 04:35] LABS: #Eosinphils 0.2 thou/uL (0.0-0.7); #Lymphocytes 1.2 thou/uL (1.20-3.40); #Monocytes 0.9 thou/uL (0.11-0.59); #Neutrophils 7.1 thou/uL (1.40-6.50); %Basophils 0.4 % (0.0-1.0); %Eosinophils 2.2 % (0.0-10.0); %Lymphocytes 12.2 % (21.0-51.0); %Monocytes 9.7 % (0.0-10.0); %Neutrophils 75.4 % (42.0-75.0); Hemoglobin 10.8 g/dL (14.0-18.0); Mean Corpuscular HGB CONC 31.4 g/dL (32.0-36.0); Mean Corpuscular Hemoglobin 27.5 pg (27.0-31.0); Mean Corpuscular Volume 87.6 fL (78.0-98.0); Mean Platelet Volume 6.8 fL (7.4-10.4); Platelet Count 308 thou/uL (130-400); RBC Distribution Width 17.7 % (11.5-14.5); Red Blood Cell (RBC) Count 3.93 mill/uL (4.70-6.10); White Blood Cell (WBC) Count 9.5 thou/uL (4.8-10.8)
[2021-03-07 04:53] LABS: Anion Gap 13 mmol/L (10-20); BUN (Urea Nitrogen) 21 mg/dL (8.4-25.7); Calc. Creatinine Clearance 120 mL/min (70-130); Calcium 9.2 mg/dL (7.8-10.44); Carbon Dioxide 29 mmol/L (23-31); Chloride 95 mmol/L (98-107); Glucose 153 mg/dL (80-115); Potassium 3.4 mmol/L (3.5-5.1); Sodium 134 mmol/L (136-145)
[2021-03-07] MEDS: Cephalexin 250 MG CAP PO SCH ×2 (05:13→11:38)
[2021-03-07] MEDS: Acetaminophen 325 MG TAB PO PRN (05:13)
[2021-03-07] MEDS ORDERED: Potassium Chloride 20 MEQ TAB PO SCH (06:30)
[2021-03-07] MEDS: Amiodarone 200 MG TAB PO SCH (09:11)
[2021-03-07] MEDS: Furosemide 20 MG TAB PO SCH (09:12)
[2021-03-07] MEDS: Gabapentin 300 MG CAP PO SCH (09:12)
[2021-03-07] MEDS: Aspirin Chewable 81 MG TAB PO SCH (09:12)
[2021-03-07] MEDS: Clopidogrel Bisulfate 75 MG TAB PO SCH (09:12)
[2021-03-07] MEDS: Sodium Chloride 0.65% Nasal 44 ML BOT EA NARE SCH (09:13)
[2021-03-07] MEDS: Sodium Chloride Nasal 15 GM TUBE EA NARE SCH (09:15)
[2021-03-07 11:38] VITALS: BP 118/76; TEMP 97.6
[2021-03-07] MEDS: HumaLOG 300 UNITS/3 ML VIAL SC PRN (11:38)
[2021-03-08] MEDS ORDERED: Amiodarone 200 MG TAB PO SCH (09:00)
== END 2021-03-07 12:57 | disposition home or self-care (01) | DRG 871 ==
LOC: ERS 17:52 → 2NO 21:04
PROVIDERS: ADMIT Internal Medicine; ATTEND Internal Medicine
PROC: B24BZZ4 Ultrasonography of Heart with Aorta, Transesophageal (ICD-10-PCS; 2021-02-09)
PROC: 5A2204Z Restoration of Cardiac Rhythm, Single (ICD-10-PCS; 2021-02-09)
PROC: 5A2204Z Restoration of Cardiac Rhythm, Single (ICD-10-PCS; 2021-02-20)
PROC: 30233K1 Transfusion of Nonautologous Frozen Plasma into Peripheral Vein, Percutaneous Approach (ICD-10-PCS; 2021-02-25)
PROC: 2Y41X5Z Packing of Nasal Region using Packing Material (ICD-10-PCS; 2021-02-25)
PROC: 093K7ZZ Control Bleeding in Nasal Mucosa and Soft Tissue, Via Natural or Artificial Opening (ICD-10-PCS; 2021-02-25)
PROC: 4A023N7 Measurement of Cardiac Sampling and Pressure, Left Heart, Percutaneous Approach (ICD-10-PCS; principal; 2021-02-28)
PROC: B2111ZZ Fluoroscopy of Multiple Coronary Arteries using Low Osmolar Contrast (ICD-10-PCS; 2021-02-28)
DX: A40.8 Other streptococcal sepsis (principal); I50.43 Acute on chronic combined systolic (congestive) and diastolic (congestive) heart failure; N17.9 Acute kidney failure, unspecified; Z68.41 Body mass index [BMI] 40.0-44.9, adult; Z20.822 Contact with and (suspected) exposure to COVID-19; I13.0 Hypertensive heart and chronic kidney disease with heart failure and stage 1 through stage 4 chronic kidney disease, or unspecified chronic kidney disease; E11.52 Type 2 diabetes mellitus with diabetic peripheral angiopathy with gangrene; I96 Gangrene, not elsewhere classified; L03.115 Cellulitis of right lower limb; L03.116 Cellulitis of left lower limb; N30.00 Acute cystitis without hematuria; I48.3 Typical atrial flutter; I42.0 Dilated cardiomyopathy; E87.1 Hypo-osmolality and hyponatremia; I24.8 Other forms of acute ischemic heart disease; N18.30 Chronic kidney disease, stage 3 unspecified; E66.01 Morbid (severe) obesity due to excess calories; E11.22 Type 2 diabetes mellitus with diabetic chronic kidney disease; E78.5 Hyperlipidemia, unspecified; I25.10 Atherosclerotic heart disease of native coronary artery without angina pectoris; E78.00 Pure hypercholesterolemia, unspecified; E11.40 Type 2 diabetes mellitus with diabetic neuropathy, unspecified; I48.91 Unspecified atrial fibrillation; E11.621 Type 2 diabetes mellitus with foot ulcer; L97.529 Non-pressure chronic ulcer of other part of left foot with unspecified severity; L97.519 Non-pressure chronic ulcer of other part of right foot with unspecified severity; G51.0 Bell's palsy; D63.1 Anemia in chronic kidney disease; I87.2 Venous insufficiency (chronic) (peripheral); I08.1 Rheumatic disorders of both mitral and tricuspid valves; I25.5 Ischemic cardiomyopathy; I49.3 Ventricular premature depolarization; E83.42 Hypomagnesemia; E87.6 Hypokalemia; L01.00 Impetigo, unspecified; R04.0 Epistaxis; Z28.21 Immunization not carried out because of patient refusal; Z98.890 Other specified postprocedural states; Z89.422 Acquired absence of other left toe(s); Z79.899 Other long term (current) drug therapy; Z79.84 Long term (current) use of oral hypoglycemic drugs; Z87.19 Personal history of other diseases of the digestive system; Z87.891 Personal history of nicotine dependence; Z82.49 Family history of ischemic heart disease and other diseases of the circulatory system; Z98.42 Cataract extraction status, left eye; Z98.41 Cataract extraction status, right eye
CPT/HCPCS: 36415; 36416; 36430; 71045; 80048; 80053; 80061; 80074; 80202; 81001; 82040; 82550; 82553; 83036; 83605; 83690; 83735; 83880; 84100; 84436; 84443; 84484; 85025; 85610; 85730; 86850; 86900; 86901; 87040; 87070; 87077; 87205; 92960; 93005; 93010; 93306; 93312; 93458; 93798; 93923; 94640; 96365; 96366; 96367; 96368; 96376; 97139; J0690; J0692; J1160; J1644; J1815; J1940; J2001; J2250; J2260; J2704; J3370; J3475; J3480; J3490; J7050; J7620; P9059; Q9967; U0002; U0005